=== PATIENT | male | born 1945 | race Caucasian/White ===

== ENCOUNTER 2018-02-13 19:18 | Emergency (ER) | payer MEDICARE, BC ==
[2018-02-13] MEDS ORDERED: Tetracaine 0.5% 2 ML Bottle ONE (19:30)
--- NOTE | 2018-02-13 22:59 | EDM.PDOC ---
ED HPI GENERAL MEDICAL PROBLEM - General Chief Complaint: Eye Problems Stated Complaint: FOREIGN BODY IN EYE Time Seen by Provider: 02/13/18 19:20 Source of Information: Reports: Patient History Limitations: Reports: No Limitations - History of Present Illness INITIAL COMMENTS - FREE TEXT/NARRATIVE: According to patient he was grinding some steel in his garage and her feels like some metal debris hit his left eye and since then has been tearing form both eyes, and cannot open his eyes. He does feel a grity sensation in the left eye. no blurry vision. no nausea, vomiting or head ache. no other complaints. No redness in the eye. no eye discharge. No halo around the lights. Onset: Today Onset Date: 02/13/18 Onset Time: 18:00 Location: Reports: Other (left eye) Quality: Reports: Ache Severity: Mild Associated Symptoms: Denies: Confusion, Chest Pain, Cough, Diaphoresis, Fever/ Chills, Nausea/Vomiting, Rash, Seizure, Shortness of Breath, Syncope, Weakness Right Eye Pain Score (Numeric/FACES): 5 - Related Data Allergies Allergy/AdvReac Type Severity Reaction Status Date / Time No Known Allergies Allergy Verified 02/14/18 00:58 Home Meds: Home Meds Hydrochlorothiazide/Lisinopril [Lisinopril-HCTZ 20-25 MG] 25 tab PO DAILY [History] ED ROS GENERAL - Review of Systems Review Of Systems: See Below Constitutional: Denies: Fever, Chills HEENT: Reports: Eye Discharge, Eye Pain. Denies: Ear Pain, Rhinitis, Throat Pain, Vision Change Respiratory: Denies: Cough, Sputum Cardiovascular: Denies: Chest Pain GI/Abdominal: Denies: Nausea, Vomiting : Denies: Pain Musculoskeletal: Denies: Foot Pain, Joint Pain ED EXAM GENERAL W FULL EYE - Physical Exam Exam: See Below Exam Limited By: No Limitations General Appearance: Alert, WD/WN, No Apparent Distress Eye Exam: Left Eye: Foreign Body (theris a small black debris stuck in the corena over the lateral aspect. 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.) With Correction: Yes Eyelids: Bilateral: Normal Appearance Conjunctiva & Sclera: Bilateral: Normal Appearance Cornea Exam: Left: Foreign Body (small black foreign body embedded in the superfical cornea), Bilateral: Normal Appearance Extraocular Movements: Bilateral: Intact Pupils: Normal Accommodation Pupillary Size: Bilateral: 3 mm Pupillary Reaction: Bilateral: Brisk Ears: Normal External Exam, Normal Canal, Hearing Grossly Normal, Normal TMs Nose: Normal Inspection, Normal Mucosa, No Blood Head: Atraumatic, Normocephalic Neck: Normal Inspection, Supple, Non-Tender, Full Range of Motion Course - Vital Signs Text/Narrative:: There is an obvious small less than 1 mm foreign body stuck in the left eye cornea laterally. The eye was numbed using tetracaine eye drops and tried eye magnet to remove the debris, it did not work. I did remove the debris using needle under magnifying lens. Pt tolerated the procedure. Pt's vision is normal. I did send him home on cipro eye drops prophylactically to use every 4hr in his left eye. advised to followup in clinic on Sunday for recheck. Sooner followup if he develops worsening eye pain or blurry vision. Pt understands and agrees with the plan. Last Recorded V/S: Last Vital Signs Temp 98.5 F 02/13/18 19:45 Pulse 87 02/13/18 19:45 Resp 16 02/13/18 19:45 BP 110/76 02/13/18 19:45 Pulse Ox 97 02/13/18 19:45 - Orders/Labs/Meds Meds: Medications Discontinued Medications Generic Name Dose Route Start Last Admin Trade Name Geoffreyq PRN Reason Stop Dose Admin Tetracaine 2 ml 02/13/18 19:30 Pontocaine 0.5% Ophth Drops .ROUTE 02/13/18 19:31 .STK-MED ONE Departure - Departure Time of Disposition: 19:30 Disposition: Home, Self-Care 01 Condition: Good Clinical Impression: Corneal foreign body - Discharge Information Instructions: Corneal Abrasion, [id number] Referrals: PCP,None [Primary Care Provider] - Forms: ED Department Discharge - Problem List & Annotations (1) Corneal foreign body SNOMED Code(s): 62425640 Code(s): T15.00XA - FOREIGN BODY IN CORNEA, UNSPECIFIED EYE, INITIAL ENCOUNTER Status: Acute - Problem List Review Problem List Initiated/Reviewed/Updated: Yes - Assessment/Plan Assessment:: Left corneal foreign body Plan: There is an obvious small less than 1 mm foreign body stuck in the left eye cornea laterally. The eye was numbed using tetracaine eye drops and tried eye magnet to remove the debris, it did not work. I did remove the debris using needle under magnifying lens. Pt tolerated the procedure. Pt's vision is normal. I did send him home on cipro eye drops prophylactically to use every 4hr in his left eye. advised to followup in clinic on Sunday for recheck. Sooner followup if he develops worsening eye pain or blurry vision. Pt understands and agrees with the plan.
[2018-02-14 01:14] VITALS: BP 110/76
== END 2018-02-13 20:05 | disposition home or self-care (01) ==
LOC: LB.ED 19:18
DX: T15.02XA Foreign body in cornea, left eye, initial encounter (principal)
CPT/HCPCS: 65220; 99283-25

== ENCOUNTER 2020-11-16 18:52 | Emergency (ER) | payer MEDICARE, BC ==
[2020-11-16 19:16] VITALS: BP 129/84; PULSE 89
[2020-11-16] MEDS ORDERED: Tetracaine HCl/PF 0.5% 4 ML Bottle ONE (19:35)
[2020-11-16] MEDS ORDERED: Tetracaine HCl/PF 0.5% 4 ML Bottle EYERT ONE (19:35)
--- NOTE | 2020-11-17 12:18 | ER ---
HPI: A 75-year-old male who comes in with his with complaints of getting something into his right eye. The patient was grinding metal and doing some other things when he felt something in his eye. This happened just shortly before coming into the ER. He denies any visual changes until he has tried rinsing it out at home. He has some form of eye cup at home and tells me that he rinsed it out at least 3 times. The patient states it is irritated. He has not had any bleeding from the eye and denies any other injuries. OBJECTIVE: GENERAL APPEARANCE: The patient is awake and alert. No obvious distress. VITAL SIGNS: Reviewed. He is afebrile. Blood pressure 129/84. EYES: Examining the right eye after putting in 2 drops of numbing agent reveals no foreign body is noted. There is no matter or exudate. Sclerae are white. Conjunctiva is pink. Pupils equal, round, and reactive to light. ED COURSE: At this point, we used fluorescein stain to the eye and there is a small abrasion injury just below the pupil in a vertical manner across the lower portion of the iris. DIAGNOSIS: Corneal abrasion. TREATMENT PLAN: The patient has to monitor closely for any infection. He is to take Tylenol as needed for pain control, and he is to follow up with an stoner hand or come back to the ER over the next day or two if his symptoms should happen to get worse. I believe, he flushed out the foreign body that was in there and has a small corneal abrasion because of it. The patient is pain-free at this time and has no further questions. CRS/MODL /[id number]
== END 2020-11-16 19:21 | disposition home or self-care (01) ==
LOC: LB.ED 18:52
DX: S05.01XA Injury of conjunctiva and corneal abrasion without foreign body, right eye, initial encounter (principal); X58.XXXA Exposure to other specified factors, initial encounter
CPT/HCPCS: 99282; 99283

== ENCOUNTER 2021-04-06 14:43 | Emergency (ER) | payer MEDICARE, BC ==
[2021-04-06] MEDS ORDERED: Albuterol/Ipratropium 3.0-0.5 MG/3 ML Neb Soln NEB ONE (14:58)
[2021-04-06] MEDS ORDERED: Aspirin 81 MG Tab.Chew PO ONE (15:16)
[2021-04-06 15:52] VITALS: BP 117/80; PULSE 93
--- NOTE | 2021-04-06 16:00 | CR ---
DATE OF SERVICE: 04/06/2021 CLINICAL DATA: Chest pain Portable chest: No priors. The heart size is normal. There is calcification of the aortic arch. There is prominence of the ascending aorta suggesting the possibility of aortic valve disease. The lungs are clear. No pneumothorax. No pleural effusions. The patient is status post bilateral total shoulder arthroplasty. [facility]
--- NOTE | 2021-04-06 16:06 | CT ---
DATE OF SERVICE: 04/06/2021 CLINICAL DATA: Chest pain Unenhanced chest CT: Multi slice acquisition through the chest without IV contrast was performed No priors. There are mild atelectatic changes in the dependent portion of both lungs. There are multiple benign appearing pulmonary cysts in the right lung. The lungs are otherwise clear. No pneumothorax. No pleural effusion. The heart size is normal. The ascending aorta is mildly aneurysmal. It measures 4.0 cm in diameter. There are enlarged mediastinal lymph nodes in the AP window, retrocaval pretracheal space, and precarinal space. Differential includes benign and malignant processes. There is degenerative disc disease throughout the thoracic spine. No other significant findings. Thank you for allowing us to participate in the care of your patient [facility]
--- NOTE | 2021-04-06 16:30 | EDM.PDOC ---
ED HPI GENERAL MEDICAL PROBLEM - General Chief Complaint: Respiratory Problem Stated Complaint: TROUBLE BREATHING Time Seen by Provider: 04/06/21 14:50 - History of Present Illness INITIAL COMMENTS - FREE TEXT/NARRATIVE: Pt C/O SOB on the Rt side only, and pain with deep breathing. Started yesterday. 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 No Hx of CAD. He only takes a BP med. Remote Hx of smoking. Right Upper Back Pain Score (Numeric/FACES): 5 - Related Data Allergies Allergy/AdvReac Type Severity Reaction Status Date / Time No Known Allergies Allergy Verified 04/06/21 14:51 Home Meds: Home Meds Hydrochlorothiazide/Lisinopril [Lisinopril-HCTZ 20-25 MG] 25 tab PO DAILY 07/19/15 [History] Past Medical History HEENT History: Reports: Other (See Below) Other HEENT History: foreign body in eye Cardiovascular History: Reports: Hypertension Respiratory History: Reports: Pneumonia, Recurrent Gastrointestinal History: Reports: Other (See Below) Other Gastrointestinal History: difficulty swalowing Genitourinary History: Reports: BPH, Other (See Below) Other Genitourinary History: urgency and decreased flow Musculoskeletal History: Reports: Arthritis, Back Pain, Chronic, Fracture, Neck Pain, Chronic, Other (See Below) Other Musculoskeletal History: rib fx - Past Surgical History GI Surgical History: Reports: Appendectomy Musculoskeletal Surgical History: Reports: Knee Replacement, Shoulder Replacement, Shoulder Surgery, Other (See Below) Other Musculoskeletal Surgeries/Procedures:: back surg x2. Right TSA 08/30/18 Social & Family History - Family History Family Medical History: No Pertinent Family History - Caffeine Use Caffeine Use: Reports: Coffee - Recreational Drug Use Recreational Drug Use: No ED ROS GENERAL - Review of Systems Review Of Systems: Comprehensive ROS is negative, except as noted in HPI. Respiratory: Reports: Shortness of Breath, Pleuritic Chest Pain ED EXAM, GENERAL - Physical Exam Exam: See Below Free Text/Narrative:: Pt is awake and alert. He was given a Duoneb tx, and states it helped him. Examining his back reveals the skin is intact. No redness, and no pain with palpation. Respiratory/Chest: Other (SOB and some chest pain.) #1 Interpretation EKG Date: 04/06/21 Course - Vital Signs Text/Narrative:: Vital signs remain stable. Last Recorded V/S: Last Vital Signs Temp 97.1 F 04/06/21 15:49 Pulse 93 04/06/21 15:49 Resp 16 04/06/21 15:49 BP 117/80 04/06/21 15:49 Pulse Ox 96 04/06/21 15:49 - Orders/Labs/Meds Labs: Laboratory Tests 04/06/21 04/06/21 Range/Units 15:13 15:13 WBC 7.4 (4.0-11.0) K/uL RBC 5.27 (4.50-6.50) M/uL Hgb 15.5 (13.0-18.0) g/dL Hct 44.2 (40.0-54.0) % MCV 84 (76-96) fL MCH 29.4 (27.0-32.0) pg MCHC 35.1 H (31.0-35.0) g/dL RDW 13.6 (11.0-16.0) % Plt Count 162 D (150-400) K/uL MPV 10.1 H (6.0-10.0) fL Neut % (Auto) 68.7 (45.0-70.0) % Lymph % (Auto) 11.3 L (20.0-40.0) % Darke % (Auto) 14.6 H (3.0-10.0) % Eos % (Auto) 5.1 H (1.0-5.0) % Baso % (Auto) 0.3 (0.0-0.5) % Neut # (Auto) 5.10 (2.00-7.50) K/uL Lymph # (Auto) 0.84 L (1.50-4.00) K/uL Darke # (Auto) 1.08 H (0.20-0.80) K/uL Eos # (Auto) 0.38 (0.04-0.40) K/uL Baso # (Auto) 0.02 (0.02-0.10) K/uL Sodium 128 L (136-145) mmol/L Potassium 3.8 (3.5-5.1) mmol/L Chloride 95 L (98-107) mmol/L Carbon Dioxide 28.5 (21.0-32.0) mmol/L Anion Gap 8.3 (5.0-15.0) mmol/L BUN 24 D (8-26) mg/dL Creatinine 1.54 H D (0.70-1.30) mg/dL Est Cr Clr Drug Dosing 38.15 mL/min Estimated GFR (MDRD) 44 L (>60) MLS/MIN BUN/Creatinine Ratio 15.6 (6-25) Glucose 123 H (74-100) mg/dL Calcium 8.3 L (8.5-10.1) mg/dL Total Bilirubin 0.8 (0.0-1.0) mg/dL AST 27 (15-37) U/L ALT 27 (12-78) U/L Alkaline Phosphatase 76 (46-116) U/L Troponin I < 0.017 (0.000-0.060) ng/mL Total Protein 7.5 (6.4-8.2) g/dL Albumin 3.3 L (3.4-5.0) g/dL Globulin 4.2 (2.2-4.2) g/dL Albumin/Globulin Ratio 0.8 (0.8-2.0) Meds: Medications Discontinued Medications Generic Name Dose Route Start Last Admin Trade Name Freq PRN Reason Stop Dose Admin Albuterol/Ipratropium 3 ml 04/06/21 14:58 04/06/21 15:05 Albuterol/Ipratropium 3.0-0.5 Mg/3 Ml Neb Soln NEB 04/06/21 14:59 3 ml BID ONE Administration Aspirin 324 mg 04/06/21 15:16 04/06/21 15:25 Aspirin 81 Mg Tab.Chew PO 04/06/21 15:17 324 mg ONETIME ONE Administration - Radiology Interpretation Free Text/Narrative:: CXR shows some abnormal looking area's or lesions on the Rt side, over the area of pain. - Re-Assessments/Exams Free Text/Narrative Re-Assessment/Exam: 04/06/21 16:31 Labs show hyponatremia, otherwise are nml. Departure - Departure Time of Disposition: 16:20 Disposition: Home, Self-Care 01 Condition: Good Clinical Impression: Hyponatremia Heat exhaustion Qualifiers: Encounter type: initial encounter Qualified Code(s): T67.5XXA - Heat exhaus tion, unspecified, initial encounter - Discharge Information *PRESCRIPTION DRUG MONITORING PROGRAM REVIEWED*: Not Applicable *COPY OF PRESCRIPTION DRUG MONITORING REPORT IN PATIENT KENYA: Not Applicable Referrals: PCP,None [Primary Care Provider] - Forms: ED Department Discharge Care Plan Goals: increase fluid intake. Increase salt intake for a couple of days. Rest and stay hydrated in the warm weather. Activity as tolerated. Sepsis Event Note (ED) - Evaluation Sepsis Screening Result: No Definite Risk - Focused Exam Vital Signs: Vital Signs Temp Pulse Resp BP Pulse Ox 04/06/21 15:49 97.1 F 93 16 117/80 96 04/06/21 14:45 97.5 F 92 20 141/88 H 95
== END 2021-04-06 16:23 | disposition home or self-care (01) ==
LOC: LB.ED 14:43
DX: T67.5XXA Heat exhaustion, unspecified, initial encounter (principal); E87.1 Hypo-osmolality and hyponatremia; I10 Essential (primary) hypertension; Z79.899 Other long term (current) drug therapy
CPT/HCPCS: 36415; 71045; 71250; 80053; 84484; 85025; 93005; 99285-25; A9270-GY; J7620-GY

== ENCOUNTER 2022-10-17 17:55 | Inpatient (IN) | payer MEDICARE, BC ==
[2022-10-17] MEDS ORDERED: Albuterol/Ipratropium 3.0-0.5 MG/3 ML Neb Soln NEB PRN (19:00)
[2022-10-17 19:04] LABS: ESTIMATED GFR 71 mL/min (>60); TROPONIN I HIGH SENSITIVITY 6.6 pg/ml (<=60.4)
[2022-10-17 19:25] LABS: CORONAVIRUS COVID-19 NAA NEGATIVE (NEGATIVE)
[2022-10-17] MEDS: cefTRIAXone 1 GM in Sodium Chloride 0.9% 50 ML IV SCH (20:10)
[2022-10-17] MEDS: Azithromycin 500 MG in Sodium Chloride 0.9% 250 ML IV SCH (21:00)
[2022-10-17] MEDS: Albuterol/Ipratropium 3.0-0.5 MG/3 ML Neb Soln NEB SCH (21:28)
[2022-10-17] MEDS ORDERED: Codeine/guaiFENesin 10-100 MG/5 ML Syrup 5 ML Cup PO PRN (22:23)
[2022-10-18] MEDS: Albuterol/Ipratropium 3.0-0.5 MG/3 ML Neb Soln NEB SCH ×6 (00:20→20:15)
[2022-10-18] MEDS ORDERED: guaiFENesin 100 MG/5 ML Soln 10 ML UD Cup ONE (03:31)
[2022-10-18] MEDS: guaiFENesin 100 MG/5 ML Soln 10 ML UD Cup PO PRN ×2 (03:43→20:53)
[2022-10-18] MEDS: Acetaminophen/Codeine 300-30 MG Tab PO PRN ×2 (05:41→20:55)
[2022-10-18] MEDS: cefTRIAXone 1 GM in Sodium Chloride 0.9% 50 ML IV SCH (20:15)
[2022-10-18] MEDS: Azithromycin 500 MG in Sodium Chloride 0.9% 250 ML IV SCH (20:30)
[2022-10-19] MEDS: Albuterol/Ipratropium 3.0-0.5 MG/3 ML Neb Soln NEB SCH ×3 (04:00→08:33)
[2022-10-19 04:23] VITALS: BP 163/90; PULSE 90
[2022-10-19] MEDS: cefTRIAXone 1 GM in Sodium Chloride 0.9% 50 ML IV SCH (08:49)
[2022-10-19] MEDS ORDERED: Albuterol 8 GM Inhaler INH PRN (09:35)
== END 2022-10-19 10:08 | disposition home or self-care (01) | DRG 195 ==
LOC: LB.ED 17:55 → LB.MS 19:30 → LB.ED 19:30
PROVIDERS: ADMIT Surgery; ATTEND Surgery
DX: J10.08 Influenza due to other identified influenza virus with other specified pneumonia (principal); J10.00 Influenza due to other identified influenza virus with unspecified type of pneumonia; R09.02 Hypoxemia; Z20.822 Contact with and (suspected) exposure to COVID-19; I10 Essential (primary) hypertension; Z79.899 Other long term (current) drug therapy; Z96.619 Presence of unspecified artificial shoulder joint; Z96.659 Presence of unspecified artificial knee joint; Z87.891 Personal history of nicotine dependence
CPT/HCPCS: 0240U; 36415; 71045; 80053; 84484; 85025; 93005; A9270-GY; J0456; J0696; J3490; J7050; J7620

== ENCOUNTER 2025-04-16 21:05 | Emergency (ER) | payer BC, MEDICARE ==
[2025-04-16 21:16] VITALS: BP 157/98
[2025-04-16 21:25] VITALS: PULSE 86
[2025-04-16] MEDS: Tetracaine HCl/PF 0.5% 4 ML Bottle EYELF ONE (21:29)
== END 2025-04-16 21:41 | disposition home or self-care (01) ==
LOC: LB.ED 21:05
DX: S05.02XA Injury of conjunctiva and corneal abrasion without foreign body, left eye, initial encounter (principal); I10 Essential (primary) hypertension; Z90.49 Acquired absence of other specified parts of digestive tract; Z79.899 Other long term (current) drug therapy; W22.8XXA Striking against or struck by other objects, initial encounter
CPT/HCPCS: 99283